=== PATIENT | male | born 1975 | race Two or more races ===

== ENCOUNTER 2022-05-04 07:06 | Emergency (ER) | payer OTHER ==
[~2022-05-04] VITALS: Ht 172.7 cm; Wt 87.1 kg
[2022-05-04 07:18] VITALS: BP 129/97
[2022-05-04] MEDS ORDERED: IBUP800T26 PO (07:50)
== END 2022-05-04 09:09 | disposition home or self-care (01) ==
LOC: ER 07:06
DX: S01.01XA Laceration without foreign body of scalp, initial encounter (principal); Z79.1 Long term (current) use of non-steroidal anti-inflammatories (NSAID); W18.39XA Other fall on same level, initial encounter; Y93.89 Activity, other specified; Y92.89 Other specified places as the place of occurrence of the external cause; Y99.8 Other external cause status
CPT/HCPCS: 12001; 70450